=== PATIENT | male | born 1940 | race Caucasian/White ===

== ENCOUNTER 2020-01-11 15:27 | Emergency (ER) | payer MEDICARE ==
[2020-01-11 15:42] VITALS: RESP 18
--- NOTE | 2020-01-11 16:05 | ED ---
General Adult HPI - General Chief complaint: Fall Stated complaint: heart issues Time Seen by Provider: 01/11/20 15:32 Source: patient, family, EMS Mode of arrival: EMS Limitations: no limitations - History of Present Illness Initial comments: Dictation was produced using [employer] dictation software. please excuse any grammatical, word or spelling errors. Chief Complaint: 79 yo Male past medical history diabetes, atrial fibrillation presents with fall History of Present Illness: Is an 79-year-old male he was transferred here from [facility]. Patient was being transferred from wheelchair to bed when he missed a step. He slid and fell down. There is concern that patient experiencing arrhythmia. There is some staff thought that his heart rate dropped into the 30s.. Patient does take Coumadin for atrial fibrillation. He does feel some soreness over his right knee however. Patient denies any loss of consciousness. Denies any head trauma. Patient has no chest pain. No palpitations. event occurred approximately one hour prior to arrival. The ROS documented in this emergency department record has been reviewed and confirmed by me. Those systems with pertinent positive or negative responses have been documented in the HPI. All other systems are other negative and/or noncontributory. PHYSICAL EXAM: General Impression: Alert and oriented x3, not in acute distress HEENT: Normocephalic atraumatic, extra-ocular movements intact, pupils equal and reactive to light bilaterally, mucous membranes moist. Cardiovascular: Heart regular rate and rhythm, S1&S2 audible, no murmurs, rubs or gallops Chest: Lungs clear to auscultation bilaterally, no rhonchi, no wheeze, no rales Abdomen: Bowel sounds present, abdomen soft, non-tender, non-distended, no organomegaly Musculoskeletal: Pulses present and equal in all extremities, no peripheral edema, joints of the upper or lower extremities range of motion without any significant pain Motor: no focal deficits noted Neurological: CN II-XII grossly intact, no focal motor or sensory deficits noted Skin: Intact with no visualized rashes Psych: Normal affect and mood ED course: 79 y Old male presents after fall. Signs upon arrival are within acceptable limits. CBC unremarkable. Coag panel shows INR 2.4. Metabolic panel is negative. Computed tomography scan of the brain showed a 6 mm nodular prominence tip basilar artery concerning for possible aneurysm. This is incidental patient does not have any symptoms to suggest aneurysm. No other acute injuries noted. CT of the C-spine is negative. Chest x-ray of pelvis x-ray B x-rays unrem arkable. CT angios of the head was obtained in order to evaluate for possible aneurysm. CT angios the head and neck shows no findings to suggest aneurysm. Patient is well-appearing at bedside. He will be discharge back tomorrow at nursing facility. Patient did not have any signs of bradycardia. He is been well during his 3 and half hour stay in the emergency department. EKG interpretation: Ventricular rate 76, a fibrillation, QRS 94, QTC 447. No HI prolongation, no QTC prolongation, no old EKG for comparison. There is lateral T wave ST depressions. Multiple PVCs. - Related Data Allergies Allergy/AdvReac Type Severity Reaction Status Date / Time No Known Allergies Allergy Verified 01/11/20 16:04 Review of Systems ROS Statement: Those systems with pertinent positive or pertinent negative responses have been documented in the HPI. ROS Other: All systems not noted in ROS Statement are negative. Past Medical History Past Medical History: Diabetes Mellitus, Prostate Disorder History of Any Multi-Drug Resistant Organisms: None Reported Past Surgical History: No Surgical Hx Reported Past Psychological History: No Psychological Hx Reported Smoking Status: Never smoker Past Alcohol Use History: Occasional Past Drug Use History: None Reported General Exam Limitations: no limitations Course Vital Signs 01/11/20 01/11/20 01/11/20 15:30 16:45 18:03 Temperature 97.8 F 97.5 F L 98.1 F Pulse Rate 87 89 83 Respiratory 18 18 18 Rate Blood Pressure 141/78 130/79 130/68 O2 Sat by Pulse 95 99 100 Oximetry Medical Decision Making - Lab Data Result diagrams: 01/11/20 15:36 01/11/20 15:36 Lab Results 01/11/20 01/11/20 01/11/20 Range/Units 15:36 15:36 15:36 WBC 6.3 (3.8-10.6) k/uL RBC 4.23 L (4.30-5.90) m/uL Hgb 13.3 (13.0-17.5) gm/dL Hct 41.0 (39.0-53.0) % MCV 96.9 (80.0-100.0) fL MCH 31.4 (25.0-35.0) pg MCHC 32.4 (31.0-37.0) g/dL RDW 13.7 (11.5-15.5) % Plt Count 174 (150-450) k/uL Neutrophils % 75 % Lymphocytes % 13 % Monocytes % 7 % Eosinophils % 2 % Basophils % 0 % Neutrophils # 4.8 (1.3-7.7) k/uL Lymphocytes # 0.8 L (1.0-4.8) k/uL Monocytes # 0.5 (0-1.0) k/uL Eosinophils # 0.1 (0-0.7) k/uL Basophils # 0.0 (0-0.2) k/uL PT 23.3 H (9.0-12.0) sec INR 2.4 H (<1.2) APTT 28.0 (22.0-30.0) sec Sodium 135 L (137-145) mmol/L Potassium 4.2 (3.5-5.1) mmol/L Chloride 100 (98-107) mmol/L Carbon Dioxide 23 (22-30) mmol/L Anion Gap 12 mmol/L BUN 22 H (9-20) mg/dL Creatinine 1.05 (0.66-1.25) mg/dL Est GFR (CKD-EPI)AfAm 78 (>60 ml/min/1.73 sqM) Est GFR (CKD-EPI)NonAf 67 (>60 ml/min/1.73 sqM) Glucose 148 H (74-99) mg/dL Calcium 9.3 (8.4-10.2) mg/dL Disposition Clinical Impression: Fall Disposition: HOME SELF-CARE Condition: Good Instructions (If sedation given, give patient instructions): Fall Prevention for Older Adults (ED) Is patient prescribed a controlled substance at d/c from ED?: No Referrals: Nishant Baez MD [Primary Care Provider] - 1-2 days Time of Disposition: 19:00
[2020-01-11 16:15] LABS: Basophils % (A) 0 %; Eosinophils # (A) 0.1 k/uL (0-0.7); Eosinophils % (A) 2 %; HGB 13.3 gm/dL (13.0-17.5); Lymphocytes # (A) 0.8 k/uL (1.0-4.8); Lymphocytes % (A) 13 %; MCH 31.4 pg (25.0-35.0); MCHC 32.4 g/dL (31.0-37.0); MCV 96.9 fL (80.0-100.0); Mean Platelet Volume 8.2; Monocytes # (A) 0.5 k/uL (0-1.0); Monocytes % (A) 7 %; Neutrophils # (A) 4.8 k/uL (1.3-7.7); Neutrophils % (A) 75 %; Platelet Count 174 k/uL (150-450); RBC 4.23 m/uL (4.30-5.90); RDW 13.7 % (11.5-15.5); WBC 6.3 k/uL (3.8-10.6)
[2020-01-11 16:24] LABS: INR 2.4 (<1.2); Prothrombin Time 23.3 sec (9.0-12.0)
--- NOTE | 2020-01-11 16:26 | XR ---
EXAMINATION TYPE: XR knee complete RT DATE OF EXAM: 01/11/2020 CLINICAL HISTORY: Fall injury with pain. TECHNIQUE: Three views of the right knee are obtained. COMPARISON: None. FINDINGS: There is demineralization present. Moderate tricompartment joint space loss. No significan t spurring. Some posterior vascular calcification identified. IMPRESSION: There is no acute fracture or dislocation in the right knee.
--- NOTE | 2020-01-11 16:29 | XR ---
EXAMINATION TYPE: XR pelvis AP view DATE OF EXAM: 01/11/2020 CLINICAL HISTORY: Fall injury with pain. TECHNIQUE: A single AP view of the pelvis is obtained. COMPARISON: None. FINDINGS: Demineralization is seen which is noted to lower radiographic sensitivity. There is mild-to -moderate axial joint space loss in both hips. Sacroiliac joints are preserved. Pubic symphysis is in tact. Vertebroplasty superior L3 level extends into the L2-L3 disc space and right prevertebral regio n. IMPRESSION: There is no acute fracture or dislocation in the pelvis.
--- NOTE | 2020-01-11 16:30 | XR ---
EXAMINATION TYPE: XR chest 1V portable DATE OF EXAM: 01/11/2020 COMPARISON: NONE HISTORY: Fall injury with pain. TECHNIQUE: Single frontal view of the chest is obtained. FINDINGS: Osseous structures are demineralized. Advanced degenerative changes right glenohumeral harsh nt is seen. There is cardiomegaly with atherosclerotic thoracic aorta. There is chronic parenchymal c hanges with bibasilar scarring and/or atelectasis. No suspicious focal airspace opacity, pleural effu elliot, or pneumothorax is seen bilaterally. Overlying EKG leads are present. IMPRESSION: Chronic changes and cardiomegaly without acute pulmonary process.
[2020-01-11 16:32] LABS: Calcium 9.3 mg/dL (8.4-10.2); Potassium 4.2 mmol/L (3.5-5.1)
[2020-01-11] MEDS ORDERED: ACETAMINOPHEN TAB 500 MG TAB PO STA (16:38)
--- NOTE | 2020-01-11 16:43 | CT ---
EXAMINATION TYPE: CT brain ryanine wo con DATE OF EXAM: 01/11/2020 COMPARISON: None HISTORY: 79-year-old male Pain after Fall injury CT DLP: 1401.7 mGycm Automated exposure control for dose reduction was used. Technique: Examination of the head was done in axial plane without intravenous contrast. Coronal and sagittal reconstructions performed. CT of the cervical spine was obtained in axial plane without intravenous injection of contrast mater ial. Coronal and sagittal reformatted images were obtained from the axial views for evaluation of f ractures, spinal alignment and canal. FINDINGS: Head: There is no evidence of acute intracranial hemorrhage, acute ischemic changes, mass, mass-effect, or extra-axial fluid collection. There is no effacement of cerebral sulci or basal subarachnoid cister ns. There is no hydrocephalus. There is no midline shift. Desouza-white matter distinction is preserv ed. Scattered mild mucosal thickening ethmoid air cells. Mastoid air cells are pneumatized. The globes ar e intact. Moderate generalized supratentorial volume loss. Mild ventriculomegaly likely secondary to central ce rebral atrophy. Leeroy's ratio calculated at 0.37. Mild patchy white matter hypodensities suggesting ch anges of chronic small vessel ischemic disease. There is 6 mm nodular prominence to the tip of the basilar artery, axial image 21 Cervical spine: No cranial cervical junction of the body, predental space widening, or prevertebral soft tissue swell ing. Hypertrophic facet and uncovertebral joint arthropathy throughout. Degenerative grade 1 anterolisthesis at C4-C5 and C5-C6 as well as C7-T1. Mild degenerative disc disease. Interval moderate bilateral neural foraminal stenoses. 2.5 cm left thyroid nodule. Sagittal and coronal reformatted images confirm above findings. COMBINED IMPRESSION: 1. Mild to moderate hydrocephalus likely in part due to cerebral atrophy and central volume loss. Cor relate to exclude a component of NPH. 2. 6 mm nodular prominence to the tip of the basilar artery. Recommend follow-up MR angiography to ex clude basilar tip aneurysm. 3. Otherwise, no acute intracranial abnormality seen. 4. Moderate cervical spondylotic change. Multilevel grade 1 anterolisthesis. No acute fracture of the cervical spine. 5. A 2.5 cm left thyroid nodule. Dedicated thyroid ultrasound follow-up recommended to further evalua te.
[2020-01-11 18:05] VITALS: BP 130/68; PULSE 83; TEMP 98.1
--- NOTE | 2020-01-11 18:51 | CT ---
EXAMINATION TYPE: CT angio head with contrast and with 3-D reconstruction DATE OF EXAM: 01/11/2020 5:48 PM HISTORY: Aneurysm Renderings. CT DLP: 1212 mGycm Automated exposure control for dose reduction was used. TECHNIQUE: Performed with IV Contrast, patient injected with 100 mL of Isovue 370. 3-D reconstruction renderings. COMPARISON: CT head without contrast 01/11/2020 4:30 PM. FINDINGS: There is dolichoectasia of the posterior and anterior arterial circulation, but no aneurysm. Specific ally, the basilar tip is negative for aneurysm. The contrast enhancement pattern is negative as seen. When compared with the comparison CT earlier today, there are no additional intracranial findings. IMPRESSION: NEGATIVE FOR ANEURYSM.
== END 2020-01-11 20:00 | disposition home or self-care (01) ==
LOC: EC 15:27
DX: M25.561 Pain in right knee (principal); I48.91 Unspecified atrial fibrillation; R94.02 Abnormal brain scan; I49.3 Ventricular premature depolarization; Z79.01 Long term (current) use of anticoagulants; W01.0XXA Fall on same level from slipping, tripping and stumbling without subsequent striking against object, initial encounter; Y93.89 Activity, other specified; Y92.129 Unspecified place in nursing home as the place of occurrence of the external cause
CPT/HCPCS: 36415; 93005; 80048; 85025; 85610; 85730; 72170; 73562; 71045; 72125; 70496; 70450; 99285; Q9967

== ENCOUNTER 2020-01-19 15:43 | Emergency (ER) | payer MEDICARE ==
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
--- NOTE | 2020-01-19 16:41 | CT ---
EXAMINATION TYPE: CT brain cspine wo con DATE OF EXAM: 01/19/2020 COMPARISON: Prior CT brain and cervical spine 01/11/2028 days prior HISTORY: fall with head injury, on coumadin CT DLP: 1517.2 mGycm Automated exposure control for dose reduction was used. TECHNIQUE: CT scan of the head and cervical spine are performed without contrast. FINDINGS: There is no interval change. Cortical atrophy again noted. Periventricular white matter s hows patchy low attenuation. Cortical atrophy is again noted, ventriculomegaly is stable. Calvarium i s intact. No hemorrhage. Inflammatory change present in the maxillary sinus bilaterally. Cervical spine is stable IMPRESSION: 1. There is no acute fracture or dislocation evident in the cervical spine. 2. No acute intracranial hemorrhage, mass effect, or midline shift is seen.
[2020-01-19 17:21] VITALS: BP 163/95; PULSE 82; RESP 16; TEMP 98
== END 2020-01-19 17:40 | disposition home or self-care (01) ==
LOC: EC 15:43
DX: S09.90XA Unspecified injury of head, initial encounter (principal); I48.91 Unspecified atrial fibrillation; Z79.01 Long term (current) use of anticoagulants; W01.10XA Fall on same level from slipping, tripping and stumbling with subsequent striking against unspecified object, initial encounter; Y93.89 Activity, other specified; Y92.199 Unspecified place in other specified residential institution as the place of occurrence of the external cause
CPT/HCPCS: 70450; 72125; 99284

== ENCOUNTER 2022-10-12 09:08 | Day surgery (SDC) | payer MEDICARE ==
[2022-10-09 10:11] VITALS: BMI 27.6
[~2022-10-12 09:08] MED LIST: ACETAMINOPHEN TAB 500 MG TAB PO PRN; DEXAMETHASONE SOD PHOSPHATE 4 MG/ML 1 ML VIAL IV ONE; HEPARIN SODIUM,PORCINE/PF 5,000 UNIT/0.5 ML SYRINGE SQ PRN; HYDROmorphone 0.5 MG/0.5 ML SYRINGE IVP PRN; LACTATED RINGERS 1,000 ML IV SCH; LIDOCAINE 1% (10MG/ML) FOR IV START INTRADERMA PRN; ONDANSETRON 4 MG/2 ML VIAL IVP ONE; Pre Op ABX Message 1 EACH MISC MISCELLANE ONE
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
[2022-10-12 09:50] LABS: Glucose,Whole Blood 114 mg/dL (70-110)
[2022-10-12 09:52] VITALS: TEMP 97.4
[2022-10-12] MEDS ORDERED: fentaNYL (PF) 50 MCG/ML 2 ML AMP ONE (10:10)
[2022-10-12] MEDS ORDERED: PROPOFOL 10 MG/ML 20 ML VIAL IV ONE (10:10)
[2022-10-12] MEDS ORDERED: BUPIVACAIN-EPI 0.25%-1:200,000 30 ML VIAL SQ ONE ×3 (10:21→10:35)
[2022-10-12] MEDS ORDERED: SODIUM CHLORIDE 0.9% 50 ML with ceFAZolin 2,000 MG IV ONE ×2 (10:25)
--- NOTE | 2022-10-12 10:49 | P.OP ---
Date of Procedure: 10/12/22 Preoperative Diagnosis: Basal cell carcinoma neck Postoperative Diagnosis: Basal cell carcinoma posterior neck Procedure(s) Performed: Wide local excision basal cell carcinoma Anesthesia: GENOVEVA Surgeon: Devyn Escobar Estimated Blood Loss (ml): 5 Pathology: other (Basal cell carcinoma) Condition: stable Disposition: PACU Description of Procedure: The patient's placed on the operative table in the lateral position. He received IV sedation. His neck was prepped and draped usual sterile fashion. The patient had a basal cell carcinoma located in the right posterior neck. Elliptical skin incision was made around the previously biopsied site. Using left cautery the subcutaneous tissue divided. The specimens of pathology. A suture was used to locate the superior aspect of the lesion. Once he was easily achieved. Skin was closed interrupted 2-0 nylon suture. Sterile dressing applied. Patient top she will was sent to recovery room in stable condition.
[2022-10-12 11:02] VITALS: PULSE 60
[2022-10-12 11:17] VITALS: BP 149/77; RESP 16
== END 2022-10-12 12:00 ==
LOC: OR 09:08
PROVIDERS: ATTEND Surgery
DX: C44.41 Basal cell carcinoma of skin of scalp and neck (principal); I48.91 Unspecified atrial fibrillation; I25.10 Atherosclerotic heart disease of native coronary artery without angina pectoris; I11.0 Hypertensive heart disease with heart failure; I50.9 Heart failure, unspecified; J44.9 Chronic obstructive pulmonary disease, unspecified; E11.9 Type 2 diabetes mellitus without complications; K21.9 Gastro-esophageal reflux disease without esophagitis; E78.5 Hyperlipidemia, unspecified; M19.90 Unspecified osteoarthritis, unspecified site; N28.9 Disorder of kidney and ureter, unspecified; N42.9 Disorder of prostate, unspecified; Z85.46 Personal history of malignant neoplasm of prostate; Z87.440 Personal history of urinary (tract) infections; Z98.890 Other specified postprocedural states; Z80.8 Family history of malignant neoplasm of other organs or systems; Z79.82 Long term (current) use of aspirin; Z79.899 Other long term (current) drug therapy; Z79.01 Long term (current) use of anticoagulants; Z79.84 Long term (current) use of oral hypoglycemic drugs
CPT/HCPCS: 11600; J1100; J2405; J0690; J3010; J2704; J1644

== ENCOUNTER 2022-11-17 09:07 | Day surgery (SDC) | payer MEDICARE ==
[2022-10-26 13:26] VITALS: BMI 29.7
[~2022-11-17 09:07] MED LIST changes: +MIDAZOLAM 2 MG/2 ML VIAL IV PRN
[2022-11-17 09:43] VITALS: TEMP 97.6
[2022-11-17 09:46] LABS: Glucose,Whole Blood 127 mg/dL (70-110)
[2022-11-17 09:52] LABS: INR 1.2 (<1.2); Prothrombin Time 12.1 sec (9.0-12.0)
[2022-11-17] MEDS ORDERED: MIDAZOLAM 2 MG/2 ML VIAL ONE (11:15)
[2022-11-17] MEDS ORDERED: SODIUM CHLORIDE 0.9% 100 ML BAG ONE (11:15)
[2022-11-17] MEDS ORDERED: KETAMINE 10 MG/ML 20 ML VIAL ONE (11:15)
[2022-11-17] MEDS ORDERED: PROPOFOL 10 MG/ML 20 ML VIAL IV ONE (11:15)
[2022-11-17] MEDS ORDERED: ceFAZolin 1,000 MG VIAL ONE (11:15)
[2022-11-17] MEDS ORDERED: LIDOCAINE 2% INJ 20 MG/ML (2 ML VIAL) ONE (11:15)
[2022-11-17] MEDS ORDERED: fentaNYL (PF) 50 MCG/ML 2 ML AMP ONE (11:15)
[2022-11-17] MEDS ORDERED: BUPIVACAIN-EPI 0.25%-1:200,000 30 ML VIAL SQ ONE (11:30)
--- NOTE | 2022-11-17 12:05 | P.OP ---
Date of Procedure: 11/17/22 Preoperative Diagnosis: Squamous cell carcinoma neck Postoperative Diagnosis: Squamous cell carcinoma posterior neck Procedure(s) Performed: Wide local excision of squamous cell carcinoma posterior neck Anesthesia: MAC Surgeon: Devyn Escobar Estimated Blood Loss (ml): 5 Pathology: other (Squamous cell carcinoma neck) Condition: stable Disposition: PACU Description of Procedure: The patient's placed on the operating table in the lateral position. He received IV sedation. The neck was prepped and draped usual sterile fashion. There was an assessment to local Xylocaine. The patient had a previous biopsy scar. Elliptical skin incision made around the scar. Using left cautery the specimen was then dissected and sent to pathology. The specimen measured approximately 8 x 3 cm. The wound for hemostasis. Skin was closed interrupted 3-0 nylon suture. Dressing was applied. Patient top she will was sent to recovery in stable condition.
[2022-11-17 12:08] VITALS: RESP 16
[2022-11-17 12:34] VITALS: BP 142/81; PULSE 75
== END 2022-11-17 14:27 | disposition home or self-care (01) ==
LOC: OR 09:07
PROVIDERS: ATTEND Surgery
DX: C44.42 Squamous cell carcinoma of skin of scalp and neck (principal); I10 Essential (primary) hypertension; E78.5 Hyperlipidemia, unspecified; J44.9 Chronic obstructive pulmonary disease, unspecified; I48.91 Unspecified atrial fibrillation; F03.90 Unspecified dementia, unspecified severity, without behavioral disturbance, psychotic disturbance, mood disturbance, and anxiety; Z79.899 Other long term (current) drug therapy; Z95.0 Presence of cardiac pacemaker; Z98.890 Other specified postprocedural states
CPT/HCPCS: 11626; 88305; 85610; J2250; J1100; J2405; J0690; J3010; J2704; J1644; J2001